=== PATIENT | male | born 1980 | race Caucasian/White ===

== ENCOUNTER 2021-07-23 05:44 | Inpatient (IN) | payer SELFPAY ==
[2021-07-23] MEDS ORDERED: Midazolam HCl 2 mg/2 ml Vial ONE (06:32)
[2021-07-23] MEDS ORDERED: Fentanyl 100 MCG/2 ML VIAL ONE ×2 (06:32→09:55)
[2021-07-23] MEDS ORDERED: Bacitracin Zinc Ointment 30 gm TUBE ONE (06:34)
[2021-07-23] MEDS ORDERED: Neomycin-Polymyxin 1 ML AMP ONE (06:34)
[2021-07-23] MEDS ORDERED: Ketorolac Tromethamine 30 MG/ML VIAL ONE (07:11)
[2021-07-23] MEDS ORDERED: PROPOFOL 200 MG/20 ML VIAL ONE (07:11)
[2021-07-23] MEDS ORDERED: Lidocaine 1% PF 5 ML VIAL ONE (07:11)
[2021-07-23] MEDS ORDERED: Ondansetron PF 4 MG/2 ML Vial ONE (07:11)
[2021-07-23] MEDS ORDERED: Fentanyl 100 MCG/2 ML VIAL SLOW IVP PRN (07:20)
[2021-07-23] MEDS ORDERED: Promethazine HCl 25 MG/ML VIAL IM PRN ×2 (07:20→08:23)
[2021-07-23] MEDS ORDERED: traMADol HCl 50 MG TAB PO PRN (07:20)
[2021-07-23] MEDS ORDERED: Milk Of Magnesia 30 ML UDCUP PO PRN (07:20)
[2021-07-23] MEDS ORDERED: Bisacodyl 10 MG SUPP PR PRN (07:20)
[2021-07-23] MEDS ORDERED: Acetaminophen 325 MG TAB PO PRN (07:20)
[2021-07-23] MEDS ORDERED: Ondansetron PF 4 MG/2 ML Vial IVP PRN (07:20)
[2021-07-23] MEDS ORDERED: Ketorolac Tromethamine 30 MG/ML VIAL IVP PRN (07:26)
[2021-07-23] MEDS ORDERED: Meperidine HCl/PF 25 MG/ML VIAL IM PRN (07:26)
[2021-07-23] MEDS ORDERED: RENALLY ADJUST ABX FS SCH (07:30)
[2021-07-23] MEDS ORDERED: Bupivacaine PF 0.5% 30 ML VIAL ONE (08:04)
[2021-07-23] MEDS ORDERED: HYDROmorphone 2 MG/ML VIAL SLOW IVP PRN (08:23)
[2021-07-23] MEDS ORDERED: Promethazine HCl 25 MG/ML VIAL IVPB PRN (08:23)
[2021-07-23] MEDS ORDERED: Meperidine HCl/PF 25 MG/ML VIAL SLOW IVP PRN (08:23)
[2021-07-23] MEDS ORDERED: Ondansetron HCl/PF 4 MG/2 ML Vial IVP PRN (08:23)
[2021-07-23] MEDS ORDERED: Promethazine HCl 25 MG/ML VIAL ONE (08:56)
[2021-07-23] MEDS ORDERED: Pen G 2.5 MILL.UNITS/50 ML BAG IVPB SCH (09:00)
[2021-07-23] MEDS ORDERED: Gentamicin 80 MG/2 ML VIAL ONE (09:03)
[2021-07-23 09:59] VITALS: BMI 23.2
[2021-07-23] MEDS: Vancomycin 1 GM in Premix Bag 1 BAG IVPB SCH ×2 (10:50→18:30)
[2021-07-23] MEDS: Sodium Chloride 0.9% 100 ML IV SCH ×4 (10:51→12:34)
[2021-07-23] MEDS: Aspirin 81 mg Enteric Coated Tablet PO SCH ×2 (10:56→22:16)
[2021-07-23] MEDS: Penicillin G Potassium 2.5 MILL.UNITS in Sodium Chloride 0.9% 50 ML IVPB SCH ×3 (10:59→22:14)
[2021-07-23] MEDS ORDERED: Sodium Chloride 0.9% 10 ML ONE (12:11)
[2021-07-23] MEDS ORDERED: Sodium Chloride 0.9% 1,000 ML IV SCH (12:45)
[2021-07-23] MEDS ORDERED: TETANUS AND DIPHTHERIA TOX/PF 0.5 ML DISP.SYRIN IM SCH (14:00)
[2021-07-23] MEDS: Morphine 4 MG/ML VIAL SLOW IVP PRN (15:34)
[2021-07-23] MEDS: Gentamicin 80 MG/2 ML VIAL IM SCH (16:50)
[2021-07-23] MEDS: Gentamicin Sulfate 80 MG in Premix Bag 1 BAG IVPB SCH (17:47)
[2021-07-23] MEDS: HYDROcodone/Acetaminophen 5/325 mg Tablet PO PRN (17:52)
[2021-07-24] MEDS: Penicillin G Potassium 2.5 MILL.UNITS in Sodium Chloride 0.9% 50 ML IVPB SCH ×6 (00:51→18:46)
[2021-07-24] MEDS: Gentamicin 80 MG/2 ML VIAL IM SCH ×3 (01:39→17:57)
[2021-07-24] MEDS: Gentamicin Sulfate 80 MG in Premix Bag 1 BAG IVPB SCH ×3 (01:43→17:54)
[2021-07-24] MEDS: Vancomycin 1 GM in Premix Bag 1 BAG IVPB SCH ×2 (04:27→11:21)
[2021-07-24 06:10] LABS: #Basophils 0.1 thou/uL (0.0-0.2); #Eosinphils 0.1 thou/uL (0.0-0.7); #Lymphocytes 2.6 thou/uL (1.20-3.40); #Monocytes 0.9 thou/uL (0.11-0.59); %Basophils 0.5 % (0.0-1.0); %Eosinophils 1.3 % (0.0-10.0); %Lymphocytes 22.5 % (21.0-51.0); %Monocytes 7.5 % (0.0-10.0); %Neutrophils 68.3 % (42.0-75.0); Hemoglobin 12.7 g/dL (14.0-18.0); Mean Corpuscular HGB CONC 32.6 g/dL (32.0-36.0); Mean Corpuscular Hemoglobin 30.9 pg (27.0-31.0); Mean Corpuscular Volume 94.7 fL (78.0-98.0); Mean Platelet Volume 6.1 fL (7.4-10.4); Platelet Count 295 thou/uL (130-400); RBC Distribution Width 11.7 % (11.5-14.5); Red Blood Cell (RBC) Count 4.11 mill/uL (4.70-6.10); White Blood Cell (WBC) Count 11.7 thou/uL (4.8-10.8)
[2021-07-24] MEDS: Aspirin 81 mg Enteric Coated Tablet PO SCH ×2 (10:16→20:40)
[2021-07-24] MEDS: HYDROcodone/Acetaminophen 5/325 mg Tablet PO PRN ×3 (10:23→20:39)
[2021-07-24 10:29] LABS: Vancomycin, Trough 10.4 ug/mL
[2021-07-24] MEDS: Morphine 4 MG/ML VIAL SLOW IVP PRN (14:12)
[2021-07-24] MEDS: Vancomycin 1.5 GRAM/300 ML BAG 1.5 GM in Premix Bag 1 BAG IVPB SCH (20:36)
[2021-07-25] MEDS: Penicillin G Potassium 2.5 MILL.UNITS in Sodium Chloride 0.9% 50 ML IVPB SCH (00:45)
[2021-07-25] MEDS: Gentamicin Sulfate 80 MG in Premix Bag 1 BAG IVPB SCH ×3 (02:06→17:52)
[2021-07-25] MEDS: Gentamicin 80 MG/2 ML VIAL IM SCH ×3 (02:15→17:53)
[2021-07-25] MEDS: Vancomycin 1.5 GRAM/300 ML BAG 1.5 GM in Premix Bag 1 BAG IVPB SCH ×3 (03:49→19:42)
[2021-07-25 05:39] LABS: #Basophils 0.1 thou/uL (0.0-0.2); #Eosinphils 0.2 thou/uL (0.0-0.7); #Lymphocytes 3.5 thou/uL (1.20-3.40); #Monocytes 1.1 thou/uL (0.11-0.59); #Neutrophils 5.9 thou/uL (1.40-6.50); %Basophils 0.8 % (0.0-1.0); %Lymphocytes 32.4 % (21.0-51.0); %Monocytes 10.5 % (0.0-10.0); %Neutrophils 54.3 % (42.0-75.0); Hemoglobin 12.9 g/dL (14.0-18.0); Mean Corpuscular HGB CONC 32.3 g/dL (32.0-36.0); Mean Corpuscular Hemoglobin 30.8 pg (27.0-31.0); Mean Corpuscular Volume 95.4 fL (78.0-98.0); Platelet Count 305 thou/uL (130-400); RBC Distribution Width 11.4 % (11.5-14.5); Red Blood Cell (RBC) Count 4.19 mill/uL (4.70-6.10); White Blood Cell (WBC) Count 10.9 thou/uL (4.8-10.8)
[2021-07-25] MEDS: Morphine 4 MG/ML VIAL SLOW IVP PRN (07:49)
[2021-07-25] MEDS: HYDROcodone/Acetaminophen 5/325 mg Tablet PO PRN ×2 (08:05→17:54)
[2021-07-25] MEDS: Aspirin 81 mg Enteric Coated Tablet PO SCH ×2 (10:16→20:02)
[2021-07-25 18:30] LABS: Vancomycin, Trough 19.3 ug/mL
[2021-07-26] MEDS: Vancomycin 1.5 GRAM/300 ML BAG 1.5 GM in Premix Bag 1 BAG IVPB SCH ×3 (03:43→21:09)
[2021-07-26 06:57] LABS: #Basophils 0.1 thou/uL (0.0-0.2); #Eosinphils 0.3 thou/uL (0.0-0.7); #Lymphocytes 3.4 thou/uL (1.20-3.40); #Monocytes 0.9 thou/uL (0.11-0.59); #Neutrophils 4.7 thou/uL (1.40-6.50); %Basophils 0.8 % (0.0-1.0); %Eosinophils 2.7 % (0.0-10.0); %Lymphocytes 36.5 % (21.0-51.0); %Monocytes 9.3 % (0.0-10.0); %Neutrophils 50.7 % (42.0-75.0); Hemoglobin 13.2 g/dL (14.0-18.0); Mean Corpuscular HGB CONC 33.8 g/dL (32.0-36.0); Mean Corpuscular Hemoglobin 31.4 pg (27.0-31.0); Mean Corpuscular Volume 92.9 fL (78.0-98.0); Platelet Count 348 thou/uL (130-400); RBC Distribution Width 11.5 % (11.5-14.5); Red Blood Cell (RBC) Count 4.21 mill/uL (4.70-6.10); White Blood Cell (WBC) Count 9.4 thou/uL (4.8-10.8)
[2021-07-26] MEDS: HYDROcodone/Acetaminophen 5/325 mg Tablet PO PRN ×2 (07:56→21:09)
[2021-07-26] MEDS: Aspirin 81 mg Enteric Coated Tablet PO SCH ×2 (07:57→21:09)
[2021-07-26] MEDS ORDERED: Fentanyl 100 MCG/2 ML VIAL ONE (16:41)
[2021-07-26] MEDS ORDERED: Neomycin-Polymyxin 1 ML AMP ONE (16:55)
[2021-07-26] MEDS ORDERED: Thrombin 5000 UNITS/5 ML VIAL ONE (16:55)
[2021-07-26] MEDS ORDERED: Bacitracin Zinc Ointment 30 gm TUBE ONE (16:55)
[2021-07-26] MEDS ORDERED: Bupivacaine PF 0.5% 30 ML VIAL ONE (16:55)
[2021-07-26] MEDS ORDERED: Dexamethasone 20 MG/5 ML VIAL ONE (17:48)
[2021-07-26] MEDS ORDERED: PHENYLEPHRINE-NS 100 MCG/ML 10 ML SYRINGE ONE (17:48)
[2021-07-26] MEDS ORDERED: Ondansetron PF 4 MG/2 ML Vial ONE (17:48)
[2021-07-26] MEDS ORDERED: Lidocaine 1% PF 5 ML VIAL ONE (17:48)
[2021-07-26] MEDS ORDERED: PROPOFOL 200 MG/20 ML VIAL ONE (17:48)
[2021-07-26] MEDS ORDERED: Mineral Oil Sterile 10 ML VIAL ONE (18:30)
[2021-07-26 19:56] LABS: Vancomycin, Trough 23.3 ug/mL
[2021-07-27] MEDS: HYDROcodone/Acetaminophen 5/325 mg Tablet PO PRN ×4 (00:56→13:01)
[2021-07-27] MEDS ORDERED: Vancomycin 1 GM in Premix Bag 1 BAG IVPB SCH (06:00)
[2021-07-27] MEDS: Aspirin 81 mg Enteric Coated Tablet PO SCH (09:16)
[2021-07-27 12:54] VITALS: BP 127/75; TEMP 97.8
== END 2021-07-27 14:18 | disposition home or self-care (01) | DRG 575 ==
LOC: SDC/OP 05:44 → SURG A 07:20
PROVIDERS: ADMIT Orthopaedic Surgery Hand Surgery; ATTEND Orthopaedic Surgery Hand Surgery
PROC: 0LB70ZZ Excision of Right Hand Tendon, Open Approach (ICD-10-PCS; principal; 2021-07-23)
PROC: 0L970ZZ Drainage of Right Hand Tendon, Open Approach (ICD-10-PCS; 2021-07-23)
PROC: 0HRFXK3 Replacement of Right Hand Skin with Nonautologous Tissue Substitute, Full Thickness, External Approach (ICD-10-PCS; 2021-07-26)
PROC: 0LB70ZZ Excision of Right Hand Tendon, Open Approach (ICD-10-PCS; 2021-07-26)
DX: L02.511 Cutaneous abscess of right hand (principal); Z20.822 Contact with and (suspected) exposure to COVID-19; B95.7 Other staphylococcus as the cause of diseases classified elsewhere
CPT/HCPCS: 36415; 80202; 85025; 90714; C9363-KX-JC; J1100; J1580; J1885; J2250; J2270; J2405; J2540; J2550; J2704; J3010; J3370; S0020

== ENCOUNTER 2021-08-14 13:27 | Outpatient (CLI) | payer SELFPAY ==
[2021-08-15 11:15] LABS: SARS-CoV-2 PCR by NAA Not Detected (NotDetected)
== END 2021-08-14 13:28 | disposition home or self-care (01) ==
LOC: LABBT 13:27
PROVIDERS: ATTEND Orthopaedic Surgery Hand Surgery
DX: Z01.812 Encounter for preprocedural laboratory examination (principal); S61.202A Unspecified open wound of right middle finger without damage to nail, initial encounter; Z20.822 Contact with and (suspected) exposure to COVID-19
CPT/HCPCS: U0003; U0005

== ENCOUNTER 2021-08-23 13:57 | Day surgery (SDC) | payer SELFPAY ==
[2021-08-16 14:57] VITALS: BMI 24.0
[~2021-08-23 13:57] MED LIST: Bacitracin Zinc Ointment 30 gm TUBE ONE; Bupivacaine PF 0.5% 30 ML VIAL ONE; Mineral Oil Sterile 10 ML VIAL ONE; Neomycin-Polymyxin 1 ML AMP ONE; Thrombin 5000 UNITS/5 ML VIAL ONE
[2021-08-23 15:21] LABS: SARS-CoV-2 NAA Rapid Test Not Detected (NotDetected)
[2021-08-23] MEDS ORDERED: Fentanyl 250 MCG/5 ML VIAL ONE (15:40)
[2021-08-23] MEDS ORDERED: Midazolam HCl 2 mg/2 ml Vial ONE (15:40)
[2021-08-23] MEDS ORDERED: Thrombin 5000 UNITS/5 ML VIAL ONE (15:42)
[2021-08-23] MEDS ORDERED: Mineral Oil Sterile 10 ML VIAL ONE (15:42)
[2021-08-23] MEDS ORDERED: Bupivacaine 0.25% HCL 30 ML VIAL ONE (15:42)
[2021-08-23] MEDS ORDERED: Bacitracin Zinc Ointment 30 gm TUBE ONE (15:42)
[2021-08-23] MEDS ORDERED: Neomycin-Polymyxin 1 ML AMP ONE (15:42)
[2021-08-23] MEDS ORDERED: ceFAZolin 2 GM/DEX 5% 100 ML BAG ONE (16:12)
[2021-08-23] MEDS ORDERED: Lidocaine 1% PF 5 ML VIAL ONE (16:17)
[2021-08-23] MEDS ORDERED: PROPOFOL 200 MG/20 ML VIAL ONE (16:17)
[2021-08-23] MEDS ORDERED: Dexamethasone 20 MG/5 ML VIAL ONE (16:17)
[2021-08-23] MEDS ORDERED: Ondansetron PF 4 MG/2 ML Vial ONE (16:17)
[2021-08-23] MEDS ORDERED: Ketorolac Tromethamine 30 MG/ML VIAL ONE (19:03)
== END 2021-08-23 19:55 | disposition home or self-care (01) ==
LOC: SDC 13:57
PROVIDERS: ATTEND Orthopaedic Surgery Hand Surgery
PROC: 0HR Skin and Breast, Replacement (ICD-10-PCS; principal; 2021-08-23)
DX: S61.202A Unspecified open wound of right middle finger without damage to nail, initial encounter (principal)
CPT/HCPCS: J1885; J2250; J3010; S0020; U0002